=== PATIENT | male | born 1950 | race Two or more races ===

== ENCOUNTER 2018-08-16 16:37 | Inpatient (IN) | payer MEDICARE, MEDICAID ==
[~2018-08-16] VITALS: Ht 200.7 cm; Wt 101.3 kg
[2018-08-16] MEDS ORDERED: SODIUM CHLORIDE 0.9% 1,000 ML IVB ONE (16:55)
[2018-08-16] MEDS ORDERED: MORPHINE SULFATE 4 MG/ML SYR/VIAL IV ONE (17:00)
[2018-08-16] MEDS ORDERED: KETOROLAC TROMETH 30 MG/ML 1ML VIAL IV ONE (17:00)
[2018-08-16] MEDS ORDERED: ONDANSETRON HCL 4 MG/2 ML VIAL IV ONE ×2 (17:00→19:30)
[2018-08-16 17:36] LABS: Basophils # (auto) 0 uL; Basophils % (auto) 0.3 % (0.0-2.0); Eosinophils # (auto) 0 uL; Hematocrit 39.2 % (41.0-53.0); Hemoglobin 13.1 g/dL (13.5-17.5); Lymphocytes # (auto) 1.1 uL; Lymphocytes % (auto) 10.5 % (10.0-50.0); Mean Corpuscular Hemoglobin 29.9 pg (28.0-32.0); Mean Corpuscular Hgb Conc. 33.4 g/dL (32.0-36.0); Mean Corpuscular Volume 89.6 fL (80.0-100.0); Monocytes # (auto) 0.3 uL; Monocytes % (auto) 2.9 % (0.0-12.0); Neutrophils % (auto) 86.3 % (37.0-80.0); Nucleated Red Blood Cells % 0.1 %; Platelet Count (auto) 222 10^3/uL (140-450); Red Blood Cells 4.38 10^6/uL (4.5-5.90); Red Cell Distribution Width 14.5 % (11.8-14.3); White Blood Cell 10.5 10^3/uL (4.4-10.8)
[2018-08-16 17:50] LABS: Albumin 3.4 g/dL (3.4-5.0); Calcium 7.8 mg/dL (8.5-10.1); Potassium 3.9 mmol/L (3.5-5.1)
[2018-08-16 17:55] LABS: BUN/Creatinine Ratio 17.8; Bilirubin, Total 0.3 mg/dL (0.2-1.0); Total Protein 7.1 g/dL (6.4-8.2)
[2018-08-16] MEDS ORDERED: HYDROmorphone HCL 2 MG/ML VL IV ONE ×2 (19:30→22:15)
[2018-08-16 22:13] LABS: Urine Bacteria NONE SEEN /hpf (None Seen); Urine Blood 3+ /uL (Negative); Urine Mucus FEW (None Seen); Urine Specific Gravity 1.024 (1.001-1.035); Urine WBC 19 /hpf (0 - 3)
[2018-08-16 22:23] LABS: Hematocrit 34.6 % (41.0-53.0); Hemoglobin 11.7 g/dL (13.5-17.5)
[2018-08-16] MEDS ORDERED: LORazepam 0.5 MG TAB PO PRN (23:15)
[2018-08-16] MEDS ORDERED: ONDANSETRON HCL 4 MG/2 ML VIAL IV PRN (23:15)
[2018-08-16] MEDS ORDERED: ACETAMINOPHEN 500 MG TAB PO PRN (23:15)
[2018-08-17] MEDS: HYDROmorphone HCL 2 MG/ML VL IV PRN ×3 (04:06→16:01)
[2018-08-17] MEDS ORDERED: SODIUM CHLORIDE 0.9% 1,000 ML IV ONE (05:00)
[2018-08-17 05:30] VITALS: BP 104/59
[2018-08-17] MEDS ORDERED: PNEUMOCOCCAL VACC POLYS 25 MCG/0.5 ML VIAL IM ONE ×2 (07:00→07:15)
[2018-08-17] MEDS ORDERED: INFLUENZA QUAD 2018-2019 0.5 ML SYRG IM ONE ×2 (07:15→10:00)
[2018-08-17 08:00] VITALS: BP 111/75
[2018-08-17 08:24] LABS: Basophils # (auto) 0.1 uL; Basophils % (auto) 0.5 % (0.0-2.0); Eosinophils # (auto) 0 uL; Hemoglobin 10.2 g/dL (13.5-17.5); Lymphocytes # (auto) 1.5 uL; Lymphocytes % (auto) 12.7 % (10.0-50.0); Mean Corpuscular Hemoglobin 29.7 pg (28.0-32.0); Monocytes # (auto) 0.8 uL; Monocytes % (auto) 7.2 % (0.0-12.0); Neutrophils # (auto) 9.2 uL; Neutrophils % (auto) 79.6 % (37.0-80.0); Platelet Count (auto) 236 10^3/uL (140-450); Red Blood Cells 3.45 10^6/uL (4.5-5.90); Red Cell Distribution Width 14.4 % (11.8-14.3); White Blood Cell 11.6 10^3/uL (4.4-10.8)
[2018-08-17 08:44] LABS: BUN/Creatinine Ratio 17.1; Potassium 4.9 mmol/L (3.5-5.1)
[2018-08-17] MEDS: cefTRIAXone 1GM/10ml IVPUSH 10 ML IV SCH (08:59)
[2018-08-17 09:00] VITALS: BP 111/75
[2018-08-17 12:33] VITALS: BP 115/82
[2018-08-17 12:43] LABS: INR 0.91 (0.9-1.15); Partial Thromboplastin Time 25.4 sec (23.78-33.04); Prothrombin Time 9.8 sec (9.27-12.13)
[2018-08-17 17:03] VITALS: BP 132/77
[2018-08-17 21:40] VITALS: BP 109/70
[2018-08-18 04:35] VITALS: BP 134/70
[2018-08-18 06:09] LABS: Basophils # (auto) 0.1 uL; Eosinophils # (auto) 0.1 uL; Monocytes # (auto) 1.1 uL; Platelet Count (auto) 198 10^3/uL (140-450); Red Blood Cells 2.57 10^6/uL (4.5-5.90); White Blood Cell 9.9 10^3/uL (4.4-10.8)
[2018-08-18 06:13] LABS: Basophils % (auto) 0.5 % (0.0-2.0); Eosinophils % (auto) 0.7 % (0.0-7.0); Hematocrit 23.4 % (41.0-53.0); Lymphocytes # (auto) 2.3 uL; Lymphocytes % (auto) 23.6 % (10.0-50.0); Mean Corpuscular Hemoglobin 31.3 pg (28.0-32.0); Mean Corpuscular Hgb Conc. 34.4 g/dL (32.0-36.0); Mean Corpuscular Volume 91.1 fL (80.0-100.0); Monocytes % (auto) 10.8 % (0.0-12.0); Neutrophils # (auto) 6.4 uL; Neutrophils % (auto) 64.4 % (37.0-80.0); Red Cell Distribution Width 14.6 % (11.8-14.3)
[2018-08-18 06:28] LABS: Albumin 2.7 g/dL (3.4-5.0); BUN/Creatinine Ratio 21.4; Calcium 7.2 mg/dL (8.5-10.1); Potassium 3.8 mmol/L (3.5-5.1)
[2018-08-18 06:31] LABS: Bilirubin, Total 0.4 mg/dL (0.2-1.0); Total Protein 5.9 g/dL (6.4-8.2)
[2018-08-18 07:58] VITALS: BP 128/72
[2018-08-18] MEDS: METOCLOPRAMIDE HCL 5MG/ml INJ 2ml VIAL IV PRN (09:11)
[2018-08-18] MEDS: cefTRIAXone 1GM/10ml IVPUSH 10 ML IV SCH (09:11)
[2018-08-18] MEDS: HYDROmorphone HCL 2 MG/ML VL IV PRN (09:12)
[2018-08-18 12:04] VITALS: BP 123/65
[2018-08-18] MEDS ORDERED: LACTULOSE 20Gm/30ML SOLN PO ONE (14:15)
[2018-08-18 16:52] VITALS: BP 145/83
[2018-08-18 18:02] LABS: Basophils # (auto) 0.1 uL; Basophils % (auto) 0.6 % (0.0-2.0); Eosinophils # (auto) 0.1 uL; Hematocrit 25.1 % (41.0-53.0); Hemoglobin 8.6 g/dL (13.5-17.5); Lymphocytes # (auto) 2.9 uL; Lymphocytes % (auto) 25.9 % (10.0-50.0); Mean Corpuscular Hemoglobin 31.3 pg (28.0-32.0); Mean Corpuscular Hgb Conc. 34.4 g/dL (32.0-36.0); Mean Corpuscular Volume 90.9 fL (80.0-100.0); Monocytes # (auto) 1.2 uL; Monocytes % (auto) 10.7 % (0.0-12.0); Neutrophils % (auto) 61.8 % (37.0-80.0); Platelet Count (auto) 213 10^3/uL (140-450); Red Blood Cells 2.76 10^6/uL (4.5-5.90); Red Cell Distribution Width 14.1 % (11.8-14.3); White Blood Cell 11.4 10^3/uL (4.4-10.8)
[2018-08-18 21:30] VITALS: BP 148/78
[2018-08-18] MEDS: HYDROcodone-ACET 5/325MG TAB PO PRN (22:24)
[2018-08-19] MEDS: HYDROcodone-ACET 5/325MG TAB PO PRN (04:24)
[2018-08-19 05:00] VITALS: BP 135/76
[2018-08-19 06:32] LABS: Basophils # (auto) 0 uL; Basophils % (auto) 0.5 % (0.0-2.0); Eosinophils # (auto) 0.2 uL; Hemoglobin 7.8 g/dL (13.5-17.5); Mean Corpuscular Hgb Conc. 34.9 g/dL (32.0-36.0)
[2018-08-19 06:34] LABS: Eosinophils % (auto) 2.3 % (0.0-7.0); Hematocrit 22.3 % (41.0-53.0); Lymphocytes % (auto) 23.6 % (10.0-50.0); Mean Corpuscular Hemoglobin 31.6 pg (28.0-32.0); Mean Corpuscular Volume 90.6 fL (80.0-100.0); Monocytes # (auto) 0.9 uL; Monocytes % (auto) 10.5 % (0.0-12.0); Neutrophils # (auto) 5.3 uL; Neutrophils % (auto) 63.1 % (37.0-80.0); Platelet Count (auto) 200 10^3/uL (140-450); Red Blood Cells 2.46 10^6/uL (4.5-5.90); Red Cell Distribution Width 14.2 % (11.8-14.3); White Blood Cell 8.5 10^3/uL (4.4-10.8)
[2018-08-19 06:47] LABS: Calcium 7.5 mg/dL (8.5-10.1); Potassium 3.7 mmol/L (3.5-5.1)
[2018-08-19 06:49] LABS: Albumin 2.9 g/dL (3.4-5.0); BUN/Creatinine Ratio 15.2
[2018-08-19 07:02] LABS: Bilirubin, Total 0.4 mg/dL (0.2-1.0); Total Protein 6.2 g/dL (6.4-8.2)
[2018-08-19 09:00] VITALS: BP 127/63
[2018-08-19] MEDS: cefTRIAXone 1GM/10ml IVPUSH 10 ML IV SCH (10:24)
[2018-08-19] MEDS: MORPHINE SULFATE 4 MG/ML SYR/VIAL IV PRN ×2 (12:57→21:40)
[2018-08-19] MEDS: METOCLOPRAMIDE HCL 5MG/ml INJ 2ml VIAL IV PRN (12:58)
[2018-08-19 13:00] VITALS: BP 161/82
[2018-08-19 13:15] VITALS: BP 147/68
[2018-08-19 17:31] LABS: Basophils # (auto) 0.1 uL; Basophils % (auto) 0.8 % (0.0-2.0); Eosinophils # (auto) 0.2 uL; Eosinophils % (auto) 2.7 % (0.0-7.0); Nucleated Red Blood Cells % 0.1 %; Red Cell Distribution Width 14.5 % (11.8-14.3)
[2018-08-19 17:32] VITALS: BP 141/74
[2018-08-19 17:33] LABS: Hematocrit 22.4 % (41.0-53.0); Hemoglobin 7.8 g/dL (13.5-17.5); Lymphocytes # (auto) 2.9 uL; Lymphocytes % (auto) 33.6 % (10.0-50.0); Mean Corpuscular Hemoglobin 31.5 pg (28.0-32.0); Mean Corpuscular Hgb Conc. 34.8 g/dL (32.0-36.0); Mean Corpuscular Volume 90.4 fL (80.0-100.0); Monocytes # (auto) 0.8 uL; Monocytes % (auto) 9.4 % (0.0-12.0); Neutrophils # (auto) 4.6 uL; Neutrophils % (auto) 53.5 % (37.0-80.0); Platelet Count (auto) 205 10^3/uL (140-450); Red Blood Cells 2.48 10^6/uL (4.5-5.90); White Blood Cell 8.6 10^3/uL (4.4-10.8)
[2018-08-19 21:30] VITALS: BP 156/86
[2018-08-20 05:00] VITALS: BP 151/85
[2018-08-20 08:38] LABS: Albumin 3.1 g/dL (3.4-5.0); BUN/Creatinine Ratio 12.5; Calcium 7.5 mg/dL (8.5-10.1); Potassium 3.5 mmol/L (3.5-5.1)
[2018-08-20 08:40] LABS: Bilirubin, Total 0.6 mg/dL (0.2-1.0); Total Protein 6.9 g/dL (6.4-8.2)
[2018-08-20 08:52] LABS: Basophils # (auto) 0.1 uL; Basophils % (auto) 0.8 % (0.0-2.0); Eosinophils # (auto) 0.3 uL; Eosinophils % (auto) 2.8 % (0.0-7.0); Hematocrit 25.8 % (41.0-53.0); Hemoglobin 8.8 g/dL (13.5-17.5); Lymphocytes # (auto) 2.3 uL; Lymphocytes % (auto) 24.8 % (10.0-50.0); Mean Corpuscular Volume 91.3 fL (80.0-100.0); Monocytes # (auto) 0.7 uL; Monocytes % (auto) 7.3 % (0.0-12.0); Neutrophils # (auto) 6.1 uL; Neutrophils % (auto) 64.3 % (37.0-80.0); Platelet Count (auto) 251 10^3/uL (140-450); Red Blood Cells 2.83 10^6/uL (4.5-5.90); Red Cell Distribution Width 14.2 % (11.8-14.3); White Blood Cell 9.4 10^3/uL (4.4-10.8)
[2018-08-20 08:56] VITALS: BP 127/69
[2018-08-20] MEDS: cefTRIAXone 1GM/10ml IVPUSH 10 ML IV SCH (09:10)
[2018-08-20] MEDS: MORPHINE SULFATE 4 MG/ML SYR/VIAL IV PRN (09:10)
[2018-08-20 13:00] VITALS: BP 140/85
== END 2018-08-20 13:30 | disposition home or self-care (01) | DRG 919 ==
LOC: EDBD 16:37 → ER 16:41 → TELE 16:42 → TELE-WESTW 08-17 04:45
PROVIDERS: ADMIT Nurse Practitioner Family; ATTEND Family Medicine
DX: N99.840 Postprocedural hematoma of a genitourinary system organ or structure following a genitourinary system procedure (principal); K66.1 Hemoperitoneum; N30.00 Acute cystitis without hematuria; D50.0 Iron deficiency anemia secondary to blood loss (chronic); K40.90 Unilateral inguinal hernia, without obstruction or gangrene, not specified as recurrent; Y83.8 Other surgical procedures as the cause of abnormal reaction of the patient, or of later complication, without mention of misadventure at the time of the procedure; K57.30 Diverticulosis of large intestine without perforation or abscess without bleeding; Z87.442 Personal history of urinary calculi; Z23 Encounter for immunization
CPT/HCPCS: 36415; 74176; 76775; 80048; 80053; 81001; 83690; 85014; 85018; 85025; 85610; 85730; 86850; 86900; 86901; 87086; 90674; 93005; 94761; 96361; 96374; 96375; 96376; J0696; J1885; J2405